=== PATIENT | female | born 1980 | race Caucasian/White ===

== ENCOUNTER 2017-01-26 05:09 | Emergency (ER) | payer OTHER ==
--- NOTE | ~2017-01-26 | CR72 ---
[facility] A Service of [facility] & [facility] [place] RADIOLOGY TEXT RESULTS PATIENT: JAVED DASILVA LOCATION: SED : 78 UNIT #: [id number] AGE: [address]: Brady Storm MD SEX: F ORDER DR: [id number] [place] [id number] MR#: [id number] Acc #: [id number] NAME: JAVED DASILVA : 1980 SEX: F STUDY DATE/TIME: 01/26/2017 04:54 UNIT: SED ROOM: STUDY DESCRIPTION: CR Chest Single View Portable Attending Physician: Brady Storm M.D. Ordering Physician: Brady Storm M.D. Primary Care Physician: Jacobo Culver M.D. MEDICAL IMAGING REPORT This report is preliminary unless electronic signature is present. EXAM Portable chest, 01/26 at 04:54 hours INDICATION Shortness of air. Overdose prior to arrival. FINDINGS AP portable chest is compared with 11/30/2015. Patient has a right-side aortic arch. Heart size normal. Mild infiltrate or atelectasis noted right base. Lungs otherwise are clear. No pneumothorax. IMPRESSION Mild right base atelectasis or infiltrate. Right-side aortic arch. Otherwise negative chest. Dictated by... Christian Marley Jr., M.D. THIS IS AN ELECTRONICALLY VERIFIED REPORT Christian Marley Jr., M.D. at 01/26/2017 10:01 PM JOEN/sun TD: 01/26/2017 10:58 JOB #: [id number] MEDICAL IMAGING REPORT
[~2017-01-26 05:09] MED LIST: ALBUTEROL17 GM INH; ANEXSIA 7.5/3251 TA1 PO; BACTRIM DS TABL1 TA1 PO; CIPRO PO; CLARITIN; CLARITIN10 M3 DOB; DEPAKOTE; DEPAKOTE ER PO; FLEXERIL PO; KEFLEX500 M1 PO; LEVAQUIN250 MG DOB; LEVAQUIN750 M1 PO; LORTAB 2.5/5001 TAB PO; NICOTINE TRANSD21 MG EXT; NO MEDICATIONS; NORCO1 TAB 10/3 PO; PHENERGAN25 M1 PO; ROBAXIN 750750 M1 PO; TRAZODONE PO; ULTRAM PO; ZYPREXA10 MG PO; ZYVOX600 MG PO; [UNRECOGNIZED DRUG - OTHER]
[2017-01-26] MEDS ORDERED: PREDNISONE PO (07:04)
[2017-01-26] MEDS ORDERED: ALBUTEROL17 GM INH (07:05)
[2017-01-26] MEDS ORDERED: DOXYCYCLINE HY100 M3 PO (07:06)
== END 2017-01-26 07:41 | disposition home or self-care (01) ==
LOC: SED 05:09
DX: T40.1X1A Poisoning by heroin, accidental (unintentional), initial encounter (principal); F11.129 Opioid abuse with intoxication, unspecified; J45.901 Unspecified asthma with (acute) exacerbation; Z88.5 Allergy status to narcotic agent
CPT/HCPCS: 71010; 94640; 99283

== ENCOUNTER 2017-08-04 19:26 | Emergency (ER) | payer OTHER ==
[~2017-08-04] VITALS: Ht 157.5 cm; Wt 59.0 kg
[~2017-08-04 19:26] MED LIST changes: +DOXYCYCLINE HY100 M3 PO; +PREDNISONE PO
[2017-08-04] MEDS ORDERED: RISPERIDONE (19:42)
[2017-08-04] MEDS ORDERED: CLARITIN D (19:43)
[2017-08-04] MEDS ORDERED: REMERON (19:44)
== END 2017-08-04 20:13 | disposition home or self-care (01) ==
LOC: SED 19:26
DX: F11.10 Opioid abuse, uncomplicated (principal); J45.909 Unspecified asthma, uncomplicated; F17.200 Nicotine dependence, unspecified, uncomplicated; Z88.5 Allergy status to narcotic agent; Z79.899 Other long term (current) drug therapy
CPT/HCPCS: 99284